=== PATIENT | female | born 1940 | race Two or more races ===

== ENCOUNTER → 2023-10-04 09:02 | Outpatient (REF) | payer OTHER, SELFPAY | LOC: HWRCS 09:02 | PROVIDERS: ATTENDING PHYSICIAN Internal Medicine Cardiovascular Disease; FAMILY PHYSICIAN Internal Medicine | DX: I27.20 Pulmonary hypertension, unspecified (principal); I50.32 Chronic diastolic (congestive) heart failure; I07.1 Rheumatic tricuspid insufficiency | CPT/HCPCS: 93306 ==